=== PATIENT | female | born 1950 | race Caucasian/White ===

== ENCOUNTER 2023-02-19 07:54 | Day surgery (SDC) | payer MEDICARE ==
[2023-02-19] MEDS ORDERED: fentaNYL 50 MCG/ML SDV ONE (08:04)
[2023-02-19] MEDS ORDERED: Midazolam 1 MG/ML 2 ML SDV ONE (08:04)
[2023-02-19] MEDS ORDERED: Propofol 200 MG/20 ML SDV ONE (08:04)
[2023-02-19] MEDS ORDERED: Lactated Ringers 1,000 ML IV SCH (08:30)
== END 2023-02-19 11:00 | disposition home or self-care (01) ==
LOC: JP.SDS 07:54
PROVIDERS: ATTEND Family Medicine
DX: Z12.11 Encounter for screening for malignant neoplasm of colon (principal); K57.30 Diverticulosis of large intestine without perforation or abscess without bleeding; I73.9 Peripheral vascular disease, unspecified; I65.29 Occlusion and stenosis of unspecified carotid artery; I10 Essential (primary) hypertension; E78.5 Hyperlipidemia, unspecified; I72.2 Aneurysm of renal artery; R73.01 Impaired fasting glucose; Z86.010 Personal history of colon polyps; Z88.8 Allergy status to other drugs, medicaments and biological substances; Z79.82 Long term (current) use of aspirin
CPT/HCPCS: J2250; J2704; J3010; J7120